=== PATIENT | male | born 1955 | race Caucasian/White ===

== ENCOUNTER 2017-02-12 11:36 | Observation (INO) | payer OTHER ==
[~2017-02-12] VITALS: Ht 167.6 cm; Wt 136.1 kg
[2017-02-12 14:10] LABS: CHLORIDE 105 mEq/L (99-109); SODIUM 136 mEq/L (136-147)
[2017-02-12 14:12] LABS: GLUCOSE 138 mg/dL (70-99)
[2017-02-12 14:13] LABS: ANION GAP 9 MEQ/L (2-14)
[2017-02-12 14:16] LABS: GFR ESTIMATE (CALCULATED) 55 mL/min/
[2017-02-12 14:17] LABS: UREA NITROGEN (BUN) 19 mg/dL (9-23)
[2017-02-12 14:20] LABS: POTASSIUM 6.2 mEq/L (3.7-5.4)
[2017-02-12] MEDS ORDERED: LISINOPRIL40 MG PO (14:56)
[2017-02-12] MEDS ORDERED: OXYMORPHONE HCL15 MG PO (14:56)
[2017-02-12] MEDS ORDERED: VERAPAMIL SR240 MG PO (14:57)
[2017-02-12] MEDS ORDERED: CLONAZEPAM0.5 MG PO (14:58)
[2017-02-12] MEDS ORDERED: NOVOLOG MI100 UNIT/M SC (14:59)
[2017-02-12] MEDS ORDERED: OMEGA-3 ACID ETH1 GM PO (14:59)
[2017-02-12] MEDS ORDERED: EZETIMIBE10 MG PO (15:00)
[2017-02-12] MEDS ORDERED: TYLENOL ARTHRI650 MG PO (15:01)
[2017-02-12 15:02] LABS: BASOPHIL COUNT 0.1 K/uL (0-0.1); EOSINOPHIL (%) 0.7 % (0-5); EOSINOPHIL COUNT 0.1 K/uL (0-0.3); IMMATURE GRANULOCYTE (%) 0.6 % (0.0-0.7); IMMATURE GRANULOCYTE COUNT 0.1 K/uL; INSTRUMENT ABS NEUTROPHIL CT 7.4 K/uL; LYMPHOCYTE COUNT 1.2 K/uL (1.0-2.8); MCH 28.8 PG (29.0-34.0); MCHC 32.1 G/DL (30.0-36.0); MCV 89.8 FL (86-99); MEAN PLAT.VOLUME 10.1 uM^3 (9.0-12.4); MONOCYTE (%) 7.5 % (3-12); MONOCYTE COUNT 0.7 K/uL (0-0.8); NEUTROPHIL (%) 78.1 % (45-76); NEUTROPHIL COUNT 7.4 K/uL (1.8-6.4); PLATELET COUNT 249 K/uL (156-360); RBC DIS.WIDTH-CV 13.2 % (11.8-14.6); RBC DIS.WIDTH-SD 43.7 % (39-53); WHITE BLOOD COUNT 9.5 K/uL (4.1-10.2)
[2017-02-12 17:36] VITALS: BP 180/89
[2017-02-12 20:00] VITALS: BP 160/68
[2017-02-12 20:46] LABS: ANION GAP 12 MEQ/L (2-14); CHLORIDE 103 MEQ/L (99-109); GFR ESTIMATE (CALCULATED) > 59 mL/min/; SAMPLE HEMOLYSIS CHECK 2; SAMPLE ICTERIC CHECK 0; SAMPLE LIPEMIA CHECK 0; SODIUM 135 MEQ/L (136-147); UREA NITROGEN (BUN) 19 mg/dL (9-23)
[2017-02-12 20:47] LABS: GLUCOSE 215 mg/dL (70-99)
[2017-02-12 22:46] LABS: ADD MIUA? YES; BILIRUBIN NEGATIVE; BLOOD SMALL; COLOR STRAW ((YELLOW)); GLUCOSE (STRIP) 150; KETONES NEGATIVE; LEUKOCYTES NEGATIVE; NITRITE NEGATIVE; PROTEIN (STRIP) NEGATIVE; SPECIFIC GRAVITY 1.006 (1.000-1.030); UROBILINOGEN 0.2 MG/DL (0.2-1.0)
[2017-02-12 23:14] LABS: BACTERIA NONE SEEN /HPF; EPITHELIAL CELLS RARE /HPF; MUCUS NONE SEEN /LPF; RED BLOOD CELLS 0-5 /HPF (0-5); WHITE BLOOD CELLS 0-5 /HPF (0-5)
[2017-02-13 00:06] VITALS: BP 158/88
[2017-02-13 02:14] LABS: UR CREATININE CONCENTRATION 46.7 MG/DL
[2017-02-13 03:30] VITALS: BP 147/78
[2017-02-13 05:23] LABS: HEMATOCRIT 51.5 % (38.0-50.0); MCH 28.6 PG (29.0-34.0); MCV 89.4 FL (86-99); MEAN PLAT.VOLUME 10.4 uM^3 (9.0-12.4); PLATELET COUNT 232 K/uL (156-360); RBC DIS.WIDTH-CV 13.5 % (11.8-14.6); RBC DIS.WIDTH-SD 43.7 % (39-53); RED BLOOD COUNT 5.76 M/uL (4.00-5.50); WHITE BLOOD COUNT 7.3 K/uL (4.1-10.2)
[2017-02-13 05:49] LABS: ANION GAP 10 MEQ/L (2-14); CHLORIDE 101 MEQ/L (99-109); GFR ESTIMATE (CALCULATED) > 59 mL/min/; GLUCOSE 146 mg/dL (70-99); POTASSIUM 5.4 MEQ/L (3.7-5.4); SAMPLE HEMOLYSIS CHECK 0; SAMPLE ICTERIC CHECK 0; SAMPLE LIPEMIA CHECK 0; SODIUM 137 MEQ/L (136-147); UREA NITROGEN (BUN) 19 mg/dL (9-23)
[2017-02-13 07:19] VITALS: BP 138/86
[2017-02-13] MEDS ORDERED: LISINOPRIL10 MG PO (08:58)
[2017-02-13] MEDS ORDERED: HYDROCHLOROTHIA25 MG PO (08:58)
== END 2017-02-13 09:18 | disposition home or self-care (01) ==
LOC: EME 11:36 → EDOF 15:36 → 5WEST 17:09
PROVIDERS: Emergency Medicine; Internal Medicine; Internal Medicine Nephrology
DX: E87.5 Hyperkalemia (principal); N17.9 Acute kidney failure, unspecified; I12.9 Hypertensive chronic kidney disease with stage 1 through stage 4 chronic kidney disease, or unspecified chronic kidney disease; N18.3 Chronic kidney disease, stage 3 (moderate); E11.9 Type 2 diabetes mellitus without complications; E66.9 Obesity, unspecified; E78.5 Hyperlipidemia, unspecified; M19.90 Unspecified osteoarthritis, unspecified site; F41.9 Anxiety disorder, unspecified
CPT/HCPCS: 76770; 80048; 80048 91; 81003; 82570; 82948; 84156; 85025; 85027; 93005; 99281; 99285; G0378; J0610; J1644; J1815; J7050